=== PATIENT | female | born 1990 | race Caucasian/White ===

== ENCOUNTER 2017-12-13 08:54 | Day surgery (SDC) | payer BC ==
[~2017-12-13 08:54] MED LIST: Sodium Chloride 0.9% 10 ML Syringe FLUSH PRN; Sodium Chloride 0.9% 2.5 ML Syringe FLUSH PRN
[2017-12-13] MEDS ORDERED: fentaNYL 100 MCG/2 ML SDV ONE ×2 (09:19→10:40)
[2017-12-13] MEDS ORDERED: Propofol 200 MG/20 ML SDV ONE ×2 (09:19→10:01)
[2017-12-13] MEDS ORDERED: Lidocaine 2% 5 ML SDV ONE (09:19)
[2017-12-13] MEDS ORDERED: Midazolam 1 MG/ML 2 ML SDV ONE (09:19)
--- NOTE | 2017-12-13 09:41 | PCM.PREANE ---
Preanesthetic Assessment - Anesthesia/Transfusion/Family Hx Anesthesia History: Prior Anesthesia Without Reaction Transfusion History: No Prior Transfusion(s) - Review of Systems General: No Symptoms Pulmonary: No Symptoms Cardiovascular: No Symptoms Gastrointestinal: No Symptoms Neurological: No Symptoms Other: Reports: None - Physical Assessment NPO Status Date: 12/12/17 O2 Sat by Pulse Oximetry: 100 Respiratory Rate: 16 Vital Signs: Last Vital Signs Temp 36.4 C 12/13/17 09:15 Pulse 76 12/13/17 09:15 Resp 16 12/13/17 09:15 BP 114/69 12/13/17 09:15 Pulse Ox 100 12/13/17 09:15 Height: 1.57 m Weight: 57.153 kg ASA Class: 2 Mental Status: Alert & Oriented x3 Airway Class: Mallampati = 2 Dentition: Reports: Normal Dentition ROM/Head Extension: Full Lungs: Clear to Auscultation, Normal Respiratory Effort Cardiovascular: Regular Rate, Regular Rhythm - Lab Values: Laboratory Last Values WBC 3.15 K/uL (4.0-11.0) L 12/13/17 09:24 RBC 4.80 M/uL (4.30-5.90) 12/13/17 09:24 Hgb 13.1 g/dL (12.0-16.0) 12/13/17 09:24 Hct 39.5 % (36.0-46.0) 12/13/17 09:24 MCV 82.3 fL (80.0-98.0) 12/13/17 09:24 MCH 27.3 pg (27.0-32.0) 12/13/17 09:24 MCHC 33.2 g/dL (31.0-37.0) 12/13/17 09:24 RDW Std Deviation 40.4 fl (28.0-62.0) 12/13/17 09:24 RDW Coeff of Jordan 13 % (11.0-15.0) 12/13/17 09:24 Plt Count 279 K/uL (150-400) 12/13/17 09:24 MPV 8.60 fL (7.40-12.00) 12/13/17 09:24 Nucleated RBC % 0.0 /100WBC 12/13/17 09:24 Nucleated RBCs # 0 K/uL 12/13/17 09:24 - Allergies Allergies/Adverse Reactions: Allergies Allergy/AdvReac Type Severity Reaction Status Date / Time amoxicillin Allergy Cannot Verified 12/08/17 08:40 Remember cipro eye drops Allergy Swelling Uncoded 12/08/17 08:40 - Anesthesia Plan Pre-Op Medication Ordered: None - Acknowledgements Anesthesia Type Planned: General Anesthesia Pt an Appropriate Candidate for the Planned Anesthesia: Yes Alternatives and Risks of Anesthesia Discussed w Pt/Guardian: Yes Pt/Guardian Understands and Agrees with Anesthesia Plan: Yes PreAnesthesia Questionnaire HEENT History: Reports: Other (See Below) Other HEENT History: has dental retainer Cardiovascular History: Reports: Heart Murmur Respiratory History: Reports: Asthma, Other (See Below) Other Respiratory History: sports induced asthma Musculoskeletal History: Reports: Fibromyalgia Neurological History: Reports: Migraines Psychiatric History: Reports: Anxiety, Depression Immunologic History: Reports: Other (See Below) Other Immunologic History: Sjogren syndrome - Past Surgical History Head Surgeries/Procedures: Reports: None HEENT Surgical History: Reports: Oral Surgery Dermatological Surgical History: Reports: Other (See Below) - SUBSTANCE USE Smoking Status *Q: Never Smoker Recreational Drug Use History: No - HOME MEDS Home Medications: Home Meds LORazepam 0.5 mg PO ASDIRECTED PRN 12/08/17 [History] - CURRENT (IN HOUSE) MEDS Current Meds: Current Medications Sodium Chloride (Saline Flush) 10 ml FLUSH ASDIRECTED PRN PRN Reason: Keep Vein Open Sodium Chloride (Saline Flush) 2.5 ml FLUSH ASDIRECTED PRN PRN Reason: Keep Vein Open Discontinued Medications Fentanyl (Sublimaze) Confirm Administered Dose 100 mcg .ROUTE .STK-MED ONE Stop: 12/13/17 09:20 Lidocaine (Xylocaine-Mpf 2%) Confirm Administered Dose 5 ml .ROUTE .STK-MED ONE Stop: 12/13/17 09:20 Midazolam HCl (Versed 1 Mg/Ml) Confirm Administered Dose 2 mg .ROUTE .STK-MED ONE Stop: 12/13/17 09:20 Propofol (Diprivan 20 Ml) Confirm Administered Dose 200 mg .ROUTE .STK-MED ONE Stop: 12/13/17 09:20
[2017-12-13] MEDS ORDERED: Lidocaine 1% with EPINEPHrine 1:100,000 10 ML MDV ONE (09:43)
[2017-12-13] MEDS ORDERED: Ketorolac 30 MG/ML SDV ONE (10:36)
[2017-12-13] MEDS ORDERED: fentaNYL 100 MCG/2 ML SDV IVPUSH PRN (10:37)
--- NOTE | 2017-12-13 11:11 | PCM.OPNOTE ---
- General Post-Op/Procedure Note Date of Surgery/Procedure: 12/13/17 Operative Procedure(s): LEEP. fulguration of vulvar/perianal condylomas Findings: DEDE II-III vulvar/perianal condyloma Pre Op Diagnosis: DEDE II-III. vulvar condylomas Post-Op Diagnosis: Same Anesthesia Technique: Local, MAC Primary Surgeon: Marianne Navarrete Fluid Replacement, Intraop: 1,000 EBL in mLs: 10 Complications: none known Condition: Good Free Text/Narrative:: Dictation [id number]
--- NOTE | 2017-12-13 11:14 | PCM.POSTAN ---
POST ANESTHESIA ASSESSMENT - MENTAL STATUS Mental Status: Alert, Oriented - RESPIRATORY Respiratory Status: Respiratory Rate WNL, Airway Patent, O2 Saturation Stable - CARDIOVASCULAR CV Status: Pulse Rate WNL, Blood Pressure Stable - GASTROINTESTINAL GI Status: No Symptoms - POST OP HYDRATION Hydration Status: Adequate & Stable
--- NOTE | 2017-12-13 12:31 | PCM48HPAN ---
Post Anesthesia Note - EVALUATION WITHIN 48HRS OF ANESTHETIC Vital Signs in Normal Range: Yes Patient Participated in Evaluation: Yes Respiratory Function Stable: Yes Airway Patent: Yes Cardiovascular Function Stable: Yes Hydration Status Stable: Yes Pain Control Satisfactory: Yes Nausea and Vomiting Control Satisfactory: Yes Mental Status Recovered: Yes Resp Rate: 13
--- NOTE | 2017-12-13 14:49 | OR ---
SURGEON: Marianne Navarrete M.D. DATE OF PROCEDURE: 12/13/2017 PREOPERATIVE DIAGNOSES: 1. Cervical intraepithelial neoplasia 2-3. 2. Vulvar and perianal condyloma. POSTOPERATIVE DIAGNOSES: 1. Cervical intraepithelial neoplasia 2-3. 2. Vulvar and perianal condyloma. PROCEDURES: 1. LEEP of the cervix. 2. Fulguration of vulvar and perianal condyloma. ANESTHESIA: MAC/local. ESTIMATED BLOOD LOSS: 10 mL. FLUIDS: 1000 mL of crystalloid. COMPLICATION: None. FINDINGS: 1. DEDE 2-3. 2. Vulvar and perianal condylomas. DISPOSITION: The patient to PACU, stable. PROCEDURE IN DETAIL: Sonal is a 27-year-old nulligravida patient, who has recently been diagnosed with DEDE 2-3 on biopsy. Therefore, I have opted to proceed with surgical intervention in form of LEEP. Risks of procedure were discussed and proper consent obtained. The patient was taken to the operating room where she underwent MAC sedation and was placed in a modified dorsal lithotomy position, was prepped and draped in the usual manner. Time-out was performed. Speculum was introduced into the vagina. The cervix was visualized. With vaccuum aspirator on, the cervix was prepped with 1% lidocaine with epinephrine and Lugol was placed. Using 20 x 10 mm loop, anterior lip and posterior lip were now gently excised followed by a 5 mm endocervical hat. These will be sent to Pathology for further analysis. The wound bed was now cauterized with rollerball. In the cervical os, was gently probed with endocervical Cytobrush to help to reduce stenosis. Hemostasis appeared evident. Monsel was gently placed. The speculum was removed. Attention now was turned to performing fulguration of the external condyloma majority around the left introital region from 4 to 6 o'clock area. This would be very gently cauterized. There was also a pedunculated condyloma at the 11 o'clock perianal region, this was simply excised with the loop cautery. The base was then cauterized. Hemostasis appeared evident. The region was treated now in lidocaine jelly. The patient has tolerated the procedure well overall. She will go to PACU in stable condition. Instrument and sponge counts were correct. LEATHA / MODLizzie /[id number] TAYLER
== END 2017-12-13 12:33 | disposition home or self-care (01) ==
LOC: MW.SDS 08:54
PROVIDERS: ATTEND Obstetrics & Gynecology
DX: D06.9 Carcinoma in situ of cervix, unspecified (principal); A63.0 Anogenital (venereal) warts; J45.990 Exercise induced bronchospasm; F41.9 Anxiety disorder, unspecified; F32.9 Major depressive disorder, single episode, unspecified; Z88.0 Allergy status to penicillin; Z88.1 Allergy status to other antibiotic agents
CPT/HCPCS: 36415; 57522; 84703; 85027; J1885; J2250; J3010; 00940; 88305; 88307; J2704

== ENCOUNTER → 2022-02-08 | Day surgery (SDC) | payer BC ==
[~2022-02-08] MED LIST changes: +Albuterol 0.083% 2.5 MG/3 ML Neb Soln NEB PRN; +Bupivacaine 0.25%/EPINEPHrine 1:200,000 10 ML SDV ONE; +Famotidine 20 MG/2 ML SDV ONE; +Ferric Subsulfate Topical Soln 8 GM (8 ML) Bottle ONE; +HYDROmorphone 1 MG/ML Syringe IVPUSH PRN; +Iodine/Potassium Iodide 5% Solution 14 ML Bottle ONE; +Lactated Ringers 1,000 ML IV SCH; +Lidocaine 1% 20 ML MDV ONE; +Lidocaine 1% with EPINEPHrine 1:100,000 50 ML MDV ONE; +Metoclopramide 10 MG/2 ML SDV IVPUSH PRN; +Midazolam 1 MG/ML 2 ML SDV ONE; +Naloxone 0.4 MG/ML SDV IVPUSH PRN; +Ondansetron 4 MG/2 ML SDV IVPUSH PRN; +Propofol 200 MG/20 ML SDV ONE; +Sodium Chloride 0.9% 20 ML SDV IV PRN; +fentaNYL 100 MCG/2 ML SDV ONE; +fentaNYL 50 MCG/ML SDV IVPUSH PRN
== END | disposition home or self-care (01) ==
LOC: MW.SDS 08:29
PROVIDERS: ATTEND Obstetrics & Gynecology
DX: N87.1 Moderate cervical dysplasia (principal); N72 Inflammatory disease of cervix uteri; G43.909 Migraine, unspecified, not intractable, without status migrainosus; J45.909 Unspecified asthma, uncomplicated; Z88.8 Allergy status to other drugs, medicaments and biological substances; Z79.899 Other long term (current) drug therapy; Z98.890 Other specified postprocedural states; Z88.1 Allergy status to other antibiotic agents
CPT/HCPCS: 57522; A9270; J2250; J2704; J3010; J3490; J7120; 00940